=== PATIENT | male | born 1985 | race Caucasian/White ===

== ENCOUNTER 2018-11-23 20:21 | Emergency (ER) | payer OTHER ==
[~2018-11-23] VITALS: Ht 165.1 cm; Wt 90.0 kg
--- NOTE | 2018-11-23 20:35 | ED.ADGEN ---
Adult General Chief Complaint Chief Complaint ".. I was reaching under the back seat of my chev pickup and my finger got caught and something took a chunk out of it..." HPI HPI Patient is a 33 year old male who presents with above hx and complaints of laceration- avulsion of 3 th alvarez finger Lt. . Patient is missing the skin over a 2 cm area by 1 cm area. Distal neurovascular intact. Has flexion proximal and distal. Refill is equal to right hand. Patient states his tetanus was completed approximately year and half ago. Patient denies any history immuno suppression. Denies travel. Patient specific ill contacts. Patient is right-hand dominant. Patient's wound issue cleaned by neighbor who is a nurse. Patient also cleaning it himself and prior alcohol to finger. Review of Systems Review of Systems Constitutional: Denies fever or chills [] Eyes: Denies change in visual acuity, redness, or eye pain [] HENT: Denies nasal congestion or sore throat [] Respiratory: Denies cough or shortness of breath [] Cardiovascular: No additional information not addressed in HPI [] GI: Denies abdominal pain, nausea, vomiting, bloody stools or diarrhea [] : Denies dysuria or hematuria [] Musculoskeletal: Denies back pain or joint pain [] Integument: Denies rash or skin lesions []complaints of avulsion laceration of left middle finger Neurologic: Denies headache, focal weakness or sensory changes [] Endocrine: Denies polyuria or polydipsia [] All other systems were reviewed and found to be within normal limits, except as documented in this note. Family History Family History Noncontributory Current Medications Current Medications Current Medications Medications (Trade) Dose Ordered Sig/Dana Start Time Stop Time Status Last Admin Dose Admin Neomycin/ Polymyxin/ Bacitracin (Triple Antibiotic Ointment) 1 pkt STK-MED ONCE 11/23/18 20:56 11/23/18 20:56 DC Allergies Allergies Allergies Coded Allergies Type Severity Reaction Last Updated Verified No Known Drug Allergies 11/23/18 No Physical Exam Physical Exam Constitutional: Well developed, well nourished, moderate acute distress, non- toxic appearance. [] HENT: Normocephalic, atraumatic, bilateral external ears normal, oropharynx moist, no oral exudates, nose normal. [] Eyes: PERRLA, EOMI, conjunctiva normal, no discharge. [] Neck: Normal range of motion, no tenderness, supple, no stridor. [] Cardiovascular:Heart rate regular rhythm, no murmur [] Lungs & Thorax: Bilateral breath sounds clear to auscultation [] Abdomen: Bowel sounds normal, soft, no tenderness, no masses, no pulsatile masses. [] Skin: Warm, dry, no erythema, no rash. [] Back: No tenderness, no CVA tenderness. [] Extremities: No tenderness, no cyanosis, no clubbing, ROM intact, no edema. [] Except laceration and left third finger Neurologic: Alert and oriented X 3, normal motor function, normal sensory function, no focal deficits noted. [] Psychologic: Affect anxious, judgement normal, mood normal. [] Current Patient Data Vital Signs Vital Signs Date Time Temp Pulse Resp B/P (MAP) Pulse Ox O2 Delivery O2 Flow Rate FiO2 11/23/18 21:33 100 18 121/76 (91) 94 Room Air 11/23/18 20:21 98.2 EKG EKG [] Radiology/Procedures Radiology/Procedures [] Course & Med Decision Making Course & Med Decision Making Pertinent Labs and Imaging studies reviewed. (See chart for details) Procedure note-suture repair- patient's hand re-washed and range of motion with surgical soap and water. Injected edge laceration with 2% lidocaine. Betadine to edge of laceration. Re-irrigated and cleaned laceration. Irrigated in range of motion. Closed laceration with 3-0 Vicryl mattress stitch 4. Patient keep laceration clean and dry. Apply Polysporin 4 times a day. Expect a scar. Expect some inflammation as the sutures resorbed. Patient return if any concerns. [] Final Impression Final Impression 1. Lt hand 3 rd finger, alvarez side avulsion 1 cm x 2 cm. ( Tissue is gone)[] Dragon Disclaimer Dragon Disclaimer This electronic medical record was generated, in whole or in part, using a voice recognition dictation system. Dragon Disclaimer This chart was dictated in whole or in part using Voice Recognition software in a busy, high-work load, and often noisy Emergency Department environment. It may contain unintended and wholly unrecognized errors or omissions. Dragon Disclaimer This chart was dictated in whole or in part using Voice Recognition software in a busy, high-work load, and often noisy Emergency Department environment. It may contain unintended and wholly unrecognized errors or omissions. RANDI NORTH MD Nov 23, 2018 20:35
[2018-11-23] MEDS ORDERED: NEOMY/BACITR/POLYMYXIN OINT PACKET. TP ONE (20:56)
[2018-11-23 21:33] VITALS: BP 121/76
== END 2018-11-23 21:30 | disposition home or self-care (01) ==
LOC: ER 20:21
DX: S61.213A Laceration without foreign body of left middle finger without damage to nail, initial encounter (principal); W26.8XXA Contact with other sharp object(s), not elsewhere classified, initial encounter; Y93.89 Activity, other specified; Y92.89 Other specified places as the place of occurrence of the external cause; Y99.8 Other external cause status
CPT/HCPCS: 12001; 99283